=== PATIENT | female | born 1965 | race Asian ===

== ENCOUNTER 2017-12-18 11:26 | Emergency (ER) | payer MEDICARE ==
[2017-12-18] MEDS ORDERED: TRANEXAMIC ACID 1,000 MG/10 ML VIAL NAS STA (12:18)
--- NOTE | 2017-12-18 12:31 | ED Physician Documentation ---
History of Present Illness - Stated complaint Stated Complaint: FACIAL BLEEDING - Chief complaint Chief Complaint: General - History obtained from History obtained from: Patient, Friend - History of Present Illness Timing: Last night Pain level max: 0 Pain level now: 0 Improved by: pressure Worsened by: nothing - Additonal information Additional information: L nare bleeding since last night. 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 Not on blood thinners Review of Systems Constitutional: denies: Fever, Chills Respiratory: denies: Cough GI: denies: Vomiting, Diarrhea Skin: denies: Rash Musculoskeletal: denies: Neck pain, Back pain Neurologic: denies: Headache PD PAST MEDICAL HISTORY - Past Medical History Past Medical History: Yes Other Past Medical History: cancer of the eye and face 1997 - Past Surgical History Past Surgical History: Yes HEENT: Other - Present Medications Home Medications: Ambulatory Orders Medication Instructions Recorded Confirmed Hydrocodone/Acetaminophen 1 - 2 each PO Q6H PRN #15 tablet 09/05/14 [Hydrocodon-Acetaminophen 5-325] Lenvatinib Mesylate [Lenvima] 14 mg PO 12/18/17 Lisinopril 10 mg PO 12/18/17 Magic Mouthwash 12/18/17 Prochlorperazine [Compazine] 10 mg PO Q6H 12/18/17 12/18/17 Sennosides/Docusate Sodium [Stool 1 each PO 12/18/17 Softener-Laxative Tablet] - Allergies Allergies/Adverse Reactions: Allergies Allergy/AdvReac Type Severity Reaction Status Date / Time No Known Drug Allergies Allergy Verified 12/18/17 11:33 - Social History Does the pt smoke?: No Smoking Status: Never smoker Does the pt drink ETOH?: No Does the pt have substance abuse?: No - Immunizations Immunizations are current?: Yes Immunizations: TDAP >10years/unknown PD ED PE NORMAL - Vitals Vital signs reviewed: Yes - General General: Alert and oriented X 3, No acute distress - HEENT HEENT: Moist mucous membranes, Other (prosthesis removed. bleeding inside L nare. ) - Neck Neck: Supple, no meningeal sign - Derm Derm: Warm and dry - Neuro Neuro: Alert and oriented X 3 Results - Vitals Vitals: Vital Signs - 24 hr 12/18/17 11:31 Temperature 36.9 C Heart Rate 111 H Respiratory 18 Rate Blood Pressure 123/72 O2 Saturation 100 Oxygen O2 Source Room air Procedures - Epistaxis Site: Left, Anterior Preparation: Clots removed, Other (txa applied) Treatment: Silver Nitrate Other: Observed - no bleeding, Pt tolerated well, O2 sat WNL PD MEDICAL DECISION MAKING - ED course Complexity details: considered differential, d/w patient ED course: 52-year-old female who presents to the emergency department for left-sided nosebleed. Her prosthesis was removed and the bleeding was brisk, difficult to determine the exact location. TXA was applied with slight slowing of the bleeding, therefore cauterization was attempted, cauterization was finally successful and there was no further bleeding in the emergency department. Unable to pack the nose because of her prosthesis. Patient counseled regarding signs and symptoms for which I believe and urgent re-evaluation would be necessary. Patient with good understanding of and agreement to plan and is comfortable going home at this time This document was made in part using voice recognition software. While efforts are made to proofread this document, sound alike and grammatical errors may occur. Departure - Departure Disposition: 01 Home, Self Care Clinical Impression: Epistaxis Condition: Good Instructions: ED Nosebleed Follow-Up: your,doctor in 3 days for recheck [Other] Comments: Do not blow or pick your nose. It was cauterized today. This should stop the bleeding. Return if you worsen
[2017-12-18 14:01] VITALS: BP 144/76
== END 2017-12-18 14:05 | disposition home or self-care (01) ==
LOC: ED 11:26
DX: R04.0 Epistaxis (principal)
CPT/HCPCS: 30901; 99283